=== PATIENT | female | born 1965 | race Caucasian/White ===

== ENCOUNTER 2017-08-02 02:05 | Emergency (ER) | payer BC ==
[2017-08-02 02:44] LABS: ABS Basophils 0.1 10^3/ul (0-0.2); ABS Eosinophils 0.4 10^3/ul (0-0.6); ABS Lymphocytes 2.7 10^3/ul (1.0-4.8); ABS Neutrophils 8.5 10^3/ul (1.5-7.7); ABS Nucleated RBC 0 10^3/ul; Eosinophil % 3.1 % (0-6); Hematocrit 37 % (35-47); Hemoglobin 12.7 g/dl (12.0-16.0); Lymphocyte % 21.6 % (25-47); Mean Corpuscular HGB Conc 34 g/dl (31-36); Mean Corpuscular Hemoglobin 30 pg (27-31); Mean Corpuscular Volume 88 fL (80-97); Mean Platelet Volume 9.5 um3 (7.4-10.4); Nucleated Red Blood Cells % 0; Platelet Count 250 10^3/ul (150-450); Red Blood Count 4.25 10^6/ul (4.00-5.40); Red Cell Distribution Width 13 % (10.5-15); White Blood Count 12.6 10^3/ul (3.5-10.8)
[2017-08-02 02:54] LABS: EGFR Non-African American 56.3 (>60)
[2017-08-02] MEDS ORDERED: Metoclopramide IV* 5 MG/ML 2 ML VIAL IV ONE (03:16)
[2017-08-02] MEDS ORDERED: Morphine INJ** 4 MG/ML 1 ML CARPUJECT IV ONE (03:16)
[2017-08-02] MEDS ORDERED: diPHENhydraMINE IV* 50 MG/ML 1 ml VIAL (BENADRYL) IV ONE (03:16)
[2017-08-02] MEDS ORDERED: NS 0.9% 1000 ML* 1,000 ML IV ONE (03:16)
[2017-08-02 03:17] LABS: Urine Appearance Cloudy; Urine Blood Negative (Negative); Urine Color Yellow; Urine Ketones Negative (Negative); Urine Protein Negative (Negative); Urine Specific Gravity 1.011 (1.010-1.030); Urine Urobilinogen Negative (Negative)
[2017-08-02] MEDS ORDERED: Iodixanol* (CONTRAST) 320 MG/ML 100 ML SDV IV ONE (03:21)
[2017-08-02] MEDS ORDERED: Morphine VIAL* 4 MG/ML VIAL (1 ml vial) IV ONE ×2 (03:40→10:17)
--- NOTE | 2017-08-02 06:12 | ED ---
Servando Abraham Gabriel, scribed for Rajneet Galindo MD on 08/02/17 at 0332 . Abdominal Pain/Female - HPI Summary HPI Summary: This patient is a 51 year old F presenting to [facility] accompanied by her family with a chief complaint of ABD pain that began 3 hours ago. The pain began in the epigastric region and then radiated into her chest and into her lower ABD. The patient rates the pain 9/10 in severity.Patient reports vomiting. Patient denies urinary sx, back pain, diarrhea, and belching. Pt states she ate a cardiographer salad earlier. NKDA. - History of Current Complaint Chief Complaint: EDAbdPain Stated Complaint: ABD PAIN Time Seen by Provider: 08/02/17 03:05 Hx Obtained From: Patient Onset/Duration: Lasting Hours, Still Present Timing: Constant Severity Initially: Severe Severity Currently: Severe Pain Intensity: 9 Pain Scale Used: 0-10 Numeric Location: Diffuse, Epigastric Radiates: Yes Radiates to: Chest Associated Signs and Symptoms: Positive: Negative - urinary sx, back pain, diarrhea, and belching, Vomiting Allergies/Adverse Reactions: Allergies Allergy/AdvReac Type Severity Reaction Status Date / Time No Known Allergies Allergy Verified 08/02/17 02:10 Home Medications: Home Medications NK [No Home Medications Reported] 08/02/17 [History Confirmed 08/02/17] PMH/Surg Hx/FS Hx/Imm Hx Endocrine/Hematology History: Reports: Hx Thyroid Disease - graves Denies: Hx Blood Disorders, Hx Bone Marrow Disease, Hx Diabetes, Hx Anemia Cardiovascular History: Denies: Hx Cardiac Arrest, Hx Deep Vein Thrombosis, Hx Hypertension Respiratory History: Denies: Hx Chronic Obstructive Pulmonary Disease (COPD), Hx Pulmonary Embolism GI History: Denies: Hx Gall Bladder Disease, Hx Gastrointestinal Bleed History: Denies: Hx Renal Disease Neurological History: Denies: Hx Developmental Delay, Hx Headaches Psychiatric History: Denies: Hx Suicide Attempt, Hx of Violent Episodes Against Others Infectious Disease History: No Infectious Disease History: Denies: Traveled Outside the [place] in Last 30 Days - Family History Known Family History: Negative: Renal Disease, Seizure Disorder, Blood Disorder - Social History Lives: With Family Alcohol Use: Rare Substance Use Type: Reports: None Smoking Status (MU): Never Smoked Tobacco Review of Systems Gastrointestinal: Negative - belching Positive: Abdominal Pain, Vomiting. Negative: Diarrhea Positive: no symptoms reported Musculoskeletal: Negative - back pain All Other Systems Reviewed And Are Negative: Yes Physical Exam - Summary Physical Exam Summary: Appearance: Well appearing, mild distress Skin: warm, dry, reflects adequate perfusion Head/face: normal Eyes: EOMI, JAMES ENT: normal Neck: supple, non-tender Respiratory: CTA, breath sounds present Cardiovascular: RRR, pulses symmetrical, no murmur Abdomen: soft, no RLQ pain Bowel Sounds: normal bowel sounds Musculoskeletal: normal, strength/ROM intact Neuro: normal, sensory motor intact, A&Ox3 Triage Information Reviewed: Yes Vital Signs On Initial Exam: Initial Vitals Temp Pulse Resp BP Pulse Ox 97.9 F 74 18 117/91 100 08/02/17 02:07 08/02/17 02:07 08/02/17 02:07 08/02/17 02:07 08/02/17 02:07 Vital Signs Reviewed: Yes Diagnostics - Vital Signs Vital Signs Temp Pulse Resp BP Pulse Ox 08/02/17 02:07 97.9 F 74 18 117/91 100 - Laboratory Lab Results: Lab Results 08/02/17 08/02/17 08/02/17 Range/Units 02:22 02:23 02:23 WBC 12.6 H (3.5-10.8) 10^3/ul RBC 4.25 (4.00-5.40) 10^6/ul Hgb 12.7 (12.0-16.0) g/dl Hct 37 (35-47) % MCV 88 (80-97) fL MCH 30 (27-31) pg MCHC 34 (31-36) g/dl RDW 13 (10.5-15) % Plt Count 250 (150-450) 10^3/ul MPV 9.5 (7.4-10.4) um3 Neut % (Auto) 67.0 (38-83) % Lymph % (Auto) 21.6 L (25-47) % Sutter % (Auto) 7.6 H (0-7) % Eos % (Auto) 3.1 (0-6) % Baso % (Auto) 0.7 (0-2) % Absolute Neuts (auto) 8.5 H (1.5-7.7) 10^3/ul Absolute Lymphs (auto) 2.7 (1.0-4.8) 10^3/ul Absolute Monos (auto) 1.0 H (0-0.8) 10^3/ul Absolute Eos (auto) 0.4 (0-0.6) 10^3/ul Absolute Basos (auto) 0.1 (0-0.2) 10^3/ul Absolute Nucleated RBC 0 10^3/ul Nucleated RBC % 0 Sodium 136 (135-145) mmol/L Potassium 3.3 L (3.5-5.0) mmol/L Chloride 103 (101-111) mmol/L Carbon Dioxide 24 (22-32) mmol/L Anion Gap 9 (2-11) mmol/L BUN 13 (6-24) mg/dL Creatinine 1.03 H (0.51-0.95) mg/dL Est GFR ( Amer) 72.4 (>60) Est GFR (Non-Af Amer) 56.3 (>60) BUN/Creatinine Ratio 12.6 (8-20) Glucose 130 H (70-100) mg/dL Lactic Acid 2.1 H* (0.5-2.0) mmol/L Calcium 9.5 (8.6-10.3) mg/dL Total Bilirubin 0.50 (0.2-1.0) mg/dL AST 17 (13-39) U/L ALT 12 (7-52) U/L Alkaline Phosphatase 66 (34-104) U/L C-Reactive Protein 9.38 H (< 5.00) mg/L Total Protein 6.9 (6.4-8.9) g/dL Albumin 3.8 (3.2-5.2) g/dL Globulin 3.1 (2-4) g/dL Albumin/Globulin Ratio 1.2 (1-3) Lipase 42 (11.0-82.0) U/L Urine Color Urine Appearance Urine pH (5-9) Ur Specific [place] (1.010-1.030) Urine Protein (Negative) Urine Ketones (Negative) Urine Blood (Negative) Urine Nitrate (Negative) Urine Bilirubin (Negative) Urine Urobilinogen (Negative) Ur Leukocyte Esterase (Negative) Urine Glucose (Negative) 08/02/17 Range/Units 02:33 WBC (3.5-10.8) 10^3/ul RBC (4.00-5.40) 10^6/ul Hgb (12.0-16.0) g/dl Hct (35-47) % MCV (80-97) fL MCH (27-31) pg MCHC (31-36) g/dl RDW (10.5-15) % Plt Count (150-450) 10^3/ul MPV (7.4-10.4) um3 Neut % (Auto) (38-83) % Lymph % (Auto) (25-47) % Sutter % (Auto) (0-7) % Eos % (Auto) (0-6) % Baso % (Auto) (0-2) % Absolute Neuts (auto) (1.5-7.7) 10^3/ul Absolute Lymphs (auto) (1.0-4.8) 10^3/ul Absolute Monos (auto) (0-0.8) 10^3/ul Absolute Eos (auto) (0-0.6) 10^3/ul Absolute Basos (auto) (0-0.2) 10^3/ul Absolute Nucleated RBC 10^3/ul Nucleated RBC % Sodium (135-145) mmol/L Potassium (3.5-5.0) mmol/L Chloride (101-111) mmol/L Carbon Dioxide (22-32) mmol/L Anion Gap (2-11) mmol/L BUN (6-24) mg/dL Creatinine (0.51-0.95) mg/dL Est GFR ( Amer) (>60) Est GFR (Non-Af Amer) (>60) BUN/Creatinine Ratio (8-20) Glucose (70-100) mg/dL Lactic Acid (0.5-2.0) mmol/L Calcium (8.6-10.3) mg/dL Total Bilirubin (0.2-1.0) mg/dL AST (13-39) U/L ALT (7-52) U/L Alkaline Phosphatase (34-104) U/L C-Reactive Protein (< 5.00) mg/L Total Protein (6.4-8.9) g/dL Albumin (3.2-5.2) g/dL Globulin (2-4) g/dL Albumin/Globulin Ratio (1-3) Lipase (11.0-82.0) U/L Urine Color Yellow Urine Appearance Cloudy Urine pH 8.0 (5-9) Ur Specific [place] 1.011 (1.010-1.030) Urine Protein Negative (Negative) Urine Ketones Negative (Negative) Urine Blood Negative (Negative) Urine Nitrate Negative (Negative) Urine Bilirubin Negative (Negative) Urine Urobilinogen Negative (Negative) Ur Leukocyte Esterase Negative (Negative) Urine Glucose Negative (Negative) Result Diagrams: 08/02/17 02:23 08/02/17 02:22 Lab Statement: Any lab studies that have been ordered have been reviewed, and results considered in the medical decision making process. - CT CT ABD/Pelvis CT Interpretation Completed By: Radiologist - distended gallbladder and stones without gallbladder inflammation. Pancreatic cysts may be psudeocyst, without pancreatic inflammation. Right upper quadrant ultrasounds may be obtained as clinically indicated ED physician has reviewed this radiology report. - EKG 0227 Cardiac Rate: NL EKG Rhythm: Sinus Rhythm - at [address] Segment: Normal EKG Interpretation: nml axis, nml intervals Re-Evaluation - Re-Evaluation First Eval Re-Evaluation Time: 04:58 Change: Improved Comment: The patient is feeling better and she would like to stay until 7am to have an US. Abdominal Pain Fem Course/Dx - Course Course Of Treatment: Patient with upper abdominal pain never before experienced. LFTs, lipase normal. CT scan reveals a pancreatic cyst and distended gallbladder. Her pain is improved. There is stool noted in the area of the discomfort as well. She hasn't no Dudley sign or significant right upper quadrant tenderness. She is pending gallbladder ultrasound which will be performed at 7 AM when the study is available. Signed out to oncoming ER physician. - Diagnoses Differential Diagnosis: Positive: Bowel Obstruction, Constipation, Diverticulitis, Gall Bladder Disease, Hepatitis, Pancreatitis, Peptic Ulcer Disease Provider Diagnoses: Epigastric abdominal pain, Pancreatic cyst Discharge - Sign-Out/Discharge Documenting (check all that apply): Sign-Out Patient Signing out patient TO: Anders Payne - awating US RUQ - Discharge Plan Condition: Fair Referrals: No Primary Care Phys,NOPCP [Primary Care Provider] - - Billing Disposition and Condition Condition: FAIR The documentation as recorded by the Servando to Gabriel accurately reflects the service I personally performed and the decisions made by me, Ranjeet Galindo MD.
--- NOTE | 2017-08-02 08:38 | RAD ---
HISTORY: upper abd pain, distended GB on US COMPARISONS: CT dated August 02, 2017 TECHNIQUE: Multiple transverse and longitudinal ultrasound images were obtained of the right upper quadrant of the abdomen using grayscale, color Doppler, and spectral Doppler imaging. FINDINGS: LIVER: The liver is normal in shape, size, contour, and echogenicity. There are no focal parenchymal masses. There is normal hepatopedal flow of the portal vein on Doppler imaging. BILIARY TREE: There is no intrahepatic or extrahepatic biliary dilatation. The common duct measures 0.7 cm. GALLBLADDER: The gallbladder is distended. Multiple shadowing echogenic foci consistent with gallstones are noted. There is no gallbladder wall thickening, pericholecystic fluid, or sonographic Dudley sign. PANCREAS: There is a 1.1 x 1.2 x 2.9 cm cyst of the neck of the pancreas. There is no main ductal dilatation. A spectral tracing is submitted of this lesion which appears to show transmitted pulsation. RIGHT KIDNEY: The right kidney is normal in shape, size, contour, and echogenicity. There is no hydronephrosis or nephrolithiasis. The right kidney measures 10.8 x 3.7 x 4.8 cm. AORTA AND IVC: The aorta and IVC are unremarkable. FLUID: There are no pleural effusions. There is no free fluid within the hepatorenal recess. OTHER FINDINGS: None. IMPRESSION: 1. CHOLELITHIASIS WITHOUT SONOGRAPHIC FEATURES OF ACUTE CHOLECYSTITIS. 2. 2.9 CM CYSTIC LESION OF THE NECK OF THE PANCREAS. THE DIFFERENTIAL INCLUDES CYSTIC PANCREATIC NEOPLASM, INCLUDING IPMN OR MUCINOUS CYSTADENOMA /CYSTADENOCARCINOMA. A PANCREATIC PSEUDOCYST IS ALSO WITHIN THE DIFFERENTIAL THE CORRECT CLINICAL SETTING.
--- NOTE | 2017-08-02 09:51 | RAD ---
Indication: Upper abdominal pain, vomiting. Contrast: Administered 91.0 ml of VISIPAQUE 320 mg/ml. CT of the abdomen and pelvis was performed after IV contrast administration. No oral contrast was given. Coronal and sagittal reconstructed images were obtained. Lung bases demonstrate no pleural fluid, nodules or masses. Heart is of normal size without evidence of pericardial effusion. The liver is normal in size. No focal lesions or intrahepatic duct dilatation is noted. The gallbladder is distended. Multiple gallstones are noted. No pericholecystic fluid or wall thickening is identified. The common duct is not dilated. Pancreas demonstrates no evidence of pancreatic duct dilatation. In the neck, there is a lobulated cyst without evidence of pancreatic duct dilatation measuring up to 2.1 cm. Correlation with MRI is suggested to evaluate for intrapapillary mucinous neoplasm or a pancreatic pseudocyst. Correlation with history of pancreatitis could also be performed. The spleen is normal in size. No adrenal masses are noted. The kidneys demonstrate symmetric nephrograms without focal lesions. No retroperitoneal lymphadenopathy is noted. No dilated loops of bowel are noted. The colon is filled with stool. The uterus and ovaries are unremarkable. No free fluid is identified. No hernias are noted. IMPRESSION: 1. Distended gallbladder with gallstones; however, no definite evidence of pericholecystic fluid or wall thickening is noted. 2. In the neck of the pancreas is an ovoid cystic structure measuring up to 2.0 cm. No evidence of pancreatic duct dilatation is noted. This may represent intrapancreatic mucinous neoplasm or pancreatic pseudocyst. MRI could be performed to further evaluate.
[2017-08-02] MEDS ORDERED: PROCHLORPERAZINE INJ 5 MG/ML 2 ML VIAL IV ONE (10:18)
--- NOTE | 2017-08-02 12:16 | ED ---
Progress - Progress Note Progress Note: Patient is a out from Dr. Galindo. Her CT scan shows pseudocyst of the pancreatic neck along with gallbladder distention. Ultrasound was ordered and pending at 7 AM. Results have returned and reveal stones without obstruction, thickening or inflammation of the gallbladder. Her reread of her CT scan shows pancreatic pseudocyst versus adenoma and follow-up with MRI is recommended. Reviewed her labs, clinical presentation and images with both Dr. Payne and Dr. Jerez. Dr. Jerez met with the patient and they both decided she would start a course of Augmentin for possible early cholecystitis however will return to the ED if she feels worse. She also agrees to follow up with her pancreatic findings outpatient when she returns home to [place] next week. Her images were printed onto a CD and reports provided. She reports her pain is better and nausea resolved. She will follow a low to no fat diet until she can follow-up with GI back home. Re-Evaluation - Re-Evaluation First Eval Re-Evaluation Time: 04:58 Change: Improved Comment: The patient is feeling better and she would like to stay until 7am to have an US. Course/Dx - Course Course Of Treatment: Patient with upper abdominal pain never before experienced. LFTs, lipase normal. CT scan reveals a pancreatic cyst and distended gallbladder. Her pain is improved. There is stool noted in the area of the discomfort as well. She hasn't no Dudley sign or significant right upper quadrant tenderness. She is pending gallbladder ultrasound which will be performed at 7 AM when the study is available. Signed out to oncoming ER physician. - Diagnoses Provider Diagnoses: Epigastric abdominal pain, Pancreatic cyst Discharge - Sign-Out/Discharge Documenting (check all that apply): Discharge/Admit/Transfer - Discharge Plan Condition: Improved Disposition: HOME Prescriptions: Amoxicillin/Clavulanate TAB* [Augmentin TAB 875*] 875 mg PO BID #20 tab Patient Education Materials: Pancreatic Pseudocyst (DC), Cholecystitis (ED), Biliary Colic (ED), Low Fat Diet (ED), Constipation (ED) Referrals: No Primary Care Phys,NOPCP [Primary Care Provider] - Additional Instructions: The definitive cause of your abdominal pain with nausea and vomiting was not identified today however there is clinical suspicion that you may have malfunction of your gallbladder. It is advised that he follow alone to no fat diet and start antibiotics. Follow-up with a general surgeon when he returns to [place] if her symptoms return and are mild or go to the emergency department if you develop return of nausea with vomiting with fever or with intractable abdominal pain. For the abnormal findings of your pancreas, and is important that she follow-up with a GI specialist. Make sure you take your images on CD for review as it is recommended that you have an MRI for further evaluation. Additional tests may be ordered as needed. Again, continue to monitor symptoms for nausea, vomiting , abdominal pain and change in bowel movements. - Billing Disposition and Condition Condition: IMPROVED Disposition: Home
[2017-08-02 12:24] VITALS: BP 104/60
--- NOTE | 2017-08-02 15:37 | CONS ---
CONSULTATION REPORT: DATE OF CONSULT: 08/02/17 - EMERGENCY DEPT PRIMARY CARE PROVIDER: The patient has no local primary care provider. REFERRING PROVIDER: Pam Byrd NP, in the emergency room. REASON FOR CONSULT: Epigastric and right upper quadrant abdominal pain. HISTORY OF PRESENT ILLNESS: Ms. Cori Ramirez is a 51-year-old woman who is healthy otherwise, who is visiting the [facility], having just arrived by vehicle from her home in [place] yesterday. She had a salad around 4:00 or 5:00 in the afternoon and at about 11:00 or 12:00 last night developed some severe crampy epigastric and right upper quadrant abdominal pain and also radiating to her left. This did not radiate up into her chest, but she had some mild shortness of breath with this. She had no chest discomfort. She had some nausea with some retching, but no profuse vomiting. She had no lower abdominal pain or change in bowel habits including diarrhea. She had no fevers, shakes, or chills and noted no jaundice. She has never had symptoms like this in the past. She does give some symptoms typical of what most likely are irritable bowel syndrome but this was more severe and completely different characteristics than those in the past. When seen in the emergency room, she had a temperature of 99.4, but otherwise stable vital signs. She was noted to have some mild tenderness in the epigastrium and right upper quadrant without rebound, guarding, or mass. Laboratory workup included a white blood cell count of 12,600. She had a lactic acid of 2.1 which subsequently normalized to 1.2. C-reactive protein of 9.38. Total bilirubin, liver transaminases and lipase were all normal. She had a creatinine of 1, but she has been told that she has had an elevated creatinine in the past. Urinalysis was unremarkable. Her imaging exam included a CT scan of the abdomen and pelvis. I did review these images with our radiologist here today. This showed a distended gallbladder with no gallbladder wall thickening. There were some dependent gallstones, but no definitive evidence of pericholecystic fluid or wall thickening. The CT also showed an ovoid cystic structure versus solid mass about 2 cm in the neck of the pancreas. This was concerning for an intrapancreatic mucinous neoplasm or pseudocyst. She also underwent an ultrasound of her gallbladder. I have reviewed these images as well. This showed cholelithiasis without sonographic features of acute cholecystitis. The gallbladder wall was thin, there was no pericholecystic fluid. The biliary duct measured about 0.7 cm. Once again was noted a lesion in the pancreas consistent with the findings on the CT scan. Surgical consultation was obtained for an opinion regarding the above 2 findings on imaging. PAST MEDICAL HISTORY: Graves disease with history of thyroidectomy. PAST SURGICAL HISTORY: section. ALLERGIES: She has no known drug allergies. SOCIAL HISTORY: She is , has 1 young daughter. 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 She lives in [place] in [place] with her . She does not use tobacco, drinks alcohol on a very rare social basis. REVIEW OF SYSTEMS: Otherwise as per above. PHYSICAL EXAM: Temperature 99.4, pulse 65, blood pressure 127/67. General: Well- developed, well-nourished, slender female who appears to be in no apparent distress. She is quite alert and conversive and pleasant. Neuro: Sclerae anicteric. The lungs are clear to auscultation with normal respiratory effort. Heart: Regular rate and rhythm without murmurs, rubs, or gallops. Abdomen: Soft and nondistended. She had normoactive bowel sounds throughout. She has a well- healed low transverse incision without hernia. There is no umbilical hernia. She has a little firmness in the epigastric and right upper quadrant, but she has no tenderness, rebound, or guarding. There are no masses. I appreciate no organomegaly. IMPRESSION: Epigastric and right upper quadrant abdominal pain, a rather sudden onset. This is the first episode of discomfort of this nature for her and she has undergone the above workup. She has some mild elevation of her white blood cell count as well as C-reactive protein. Ultrasound and CT both show gallstones without evidence of cholecystitis and what appears to be an incidental finding of a possible neoplasm in the neck of the pancreas. PLAN: 1. I discussed the possible etiology of her discomfort with her and her . I think that this may well be related to the gallbladder, and it is difficult at this point to know if she is developing acute calculous cholecystitis with such an early presentation and imaging. This also may well represent a food poisoning type picture which may also be self limiting as well. This may also be biliary colic that will continue to improve in the next 6 -8 hours. 2. The finding in the pancreas I believe is an incidental finding and is not related to any development of acute discomfort. This will require further evaluation when she returns home, most likely an MRI of the pancreas after seeing the appropriate specialist/physician at her hometown in [place], [place], and I stressed the importance of following up on this to her. 3. As far as her abdominal pain goes, she seems to be feeling better. I do not feel an urgent need to take her to the operating room for a cholecystectomy as this may well be simple biliary colic. She is from out of town and certainly would like to try to go back home prior to considering surgery for her gallbladder. I think this is certainly reasonable and I think it is reasonable to continue observation and probably discharge her here from the emergency room if she can tolerate liquids. If her pain worsens, I recommend she return to the emergency room or also seek care at home. Also it is a reasonable thought to give her a prescription for Augmentin 875 mg p.o. b.i.d. for 10 days for treatment of early acute cholecystitis if her symptoms do not improve over the next several hours, as I would expect an episode of biliary colic to do. After our long discussion, she would like to be discharged home and I do not believe that she requires inpatient admission for observation. She is with her and I stressed to her that if her pain worsens in the next 12 to 24 hours, if she develops new symptoms, fever, jaundice, or severe abdominal pain, she needs to return to the emergency room. [id number]/CPS #: [id number] MAX
== END 2017-08-02 12:29 | disposition home or self-care (01) ==
LOC: ED 02:05
DX: R10.13 Epigastric pain (principal); K86.2 Cyst of pancreas; E05.00 Thyrotoxicosis with diffuse goiter without thyrotoxic crisis or storm
CPT/HCPCS: 36415; 74177; 76705; 80053; 81003; 83605; 83690; 85025; 86140; 93005; 99282; J1200; J2270; J2765; Q9967